=== PATIENT | female | born 1995 | race Caucasian/White ===

== ENCOUNTER 2016-10-08 11:50 | Emergency (ER) | payer OTHER ==
[2016-10-08 12:40] LABS: HCG,QUALITATIVE URINE POSITIVE
[2016-10-08 12:41] LABS: SPECIFIC GRAVITY 1.025 (1.001-1.030); URINE BILIRUBIN NEGATIVE (NEGATIVE); URINE BLOOD 1+ (NEGATIVE); URINE GLUCOSE (UA) NEGATIVE (NEGATIVE); URINE LEUKOCYTE ESTERASE TRACE (NEGATIVE); URINE NITRITE NEGATIVE (NEGATIVE); URINE PROTEIN TRACE (NEGATIVE); URINE UROBILINOGEN NORMAL (0-1 mg/dl)
[2016-10-08 12:43] LABS: URINE APPEARANCE HAZY; URINE COLOR DARK YELLOW
[2016-10-08 13:01] LABS: URINE BACTERIA 1+; URINE EPITHELIAL CELLS 0 /hpf; URINE RBC 0-1 /hpf; URINE WBC NEG /hpf
[2016-10-08 13:16] LABS: ABSOLUTE NEUTROPHIL COUNT 6.7 K/mm3 (1.8-7.7); BASO % 0.2 % (0.2-1.0); EOS # 0.1 (0.0-0.5); EOS % 0.6 % (0.9-2.9); HEMATOCRIT 36.6 % (37.0-47.0); HEMOGLOBIN 11.5 gm/l (12.0-16.0); IMM NEUT% 0.4 % (0-1); LYMPH # 1.4 (1.0-4.8); LYMPH % 16.2 % (15-45); MEAN CELL VOLUME 81.5 fl (81.0-99.0); MEAN CORPUSCULAR HEMOGLOBIN 25.6 pg (27.0-31.0); MEAN CORPUSCULAR HGB CONC 31.4 g/dl (33.0-37.0); MEAN PLATELET VOLUME 9.6 fl (7.4-10.4); MONO # 0.4 (0.0-0.8); MONO % 4.5 % (4-12); NEUT % 78.1 % (43-75); PLATELET COUNT 275 K/mm3 (130-400); RED CELL DISTRIBUTION WIDTH 15.9 % (11.5-14.5)
--- NOTE | 2016-10-08 13:50 | US ---
OB COMP <14 WKS, OB TRANSVAGINAL CLINICAL HISTORY: 21 years old, gestational age 8 weeks 1 day, ANN 05/19/2017, , with one episode of spotting this morning. COMPARISON: None TECHNIQUE: Transabdominal and transvaginal. FINDINGS: Uterus: Single intrauterine gestation. Gestational sac size and shape: Normal size and shape. Mean sac diameter: 3.99 cm = 9 weeks 2 days. [place] rump length: 1.88 cm = 8 weeks 3 days. Estimated date of confinement: 05/21/2017 Embryo: Yes Yolks sac: Yes heart tones: Yes 176 Beats per minute Somatic motion: Too early comment Placenta: Too early to comment. Previa: Too early comment. [place]-gestational bleed: On the left, 2.1 x 1.8 x 0.6 cm Right ovary: 2.8 x 3.0 x 2.4 cm. Normal blood flow. Left ovary: 2.5 x 2.2 x 1.3 cm. Normal blood flow. Impression: Live intrauterine gestation, ultrasound gestational age 8 weeks 3 days. EDC 05/21/2017. Left perigestational bleed, 2.2 x 1.8 x 0.6 cm The report was sent to the emergency department [employer] medical record system 10/08/2016 at 13:53
== END 2016-10-08 14:53 | disposition home or self-care (01) ==
LOC: ED 11:50
DX: O20.0 Threatened abortion (principal); Z3A.08 8 weeks gestation of pregnancy

== ENCOUNTER 2016-12-01 14:22 | Outpatient (CLI) | payer OTHER | END 2016-12-01 14:23 | disposition home or self-care (01) | LOC: NC 14:22 | PROVIDERS: ATTEND Advanced Practice Midwife | DX: O99.211 Obesity complicating pregnancy, first trimester (principal); Z71.3 Dietary counseling and surveillance; Z68.41 Body mass index [BMI] 40.0-44.9, adult ==

== ENCOUNTER 2017-01-20 15:16 | Emergency (ER) | payer OTHER ==
[2017-01-20] MEDS ORDERED: ONDANSETRON 4 MG/2ML 2 ML VIAL ONE (16:01)
[2017-01-20] MEDS ORDERED: SODIUM CHLORIDE 0.9% 1,000 ML ONE (16:01)
[2017-01-20 16:27] LABS: ABSOLUTE NEUTROPHIL COUNT 15.8 K/mm3 (1.8-7.7); BASO % 0.1 % (0.2-1.0); EOS % 0.2 % (0.9-2.9); HEMATOCRIT 34.3 % (37.0-47.0); HEMOGLOBIN 10.7 gm/l (12.0-16.0); IMM NEUT # 0.1 K/mm3 (0-0.2); IMM NEUT% 0.5 % (0-1); LYMPH # 0.4 (1.0-4.8); LYMPH % 2.6 % (15-45); MEAN CELL VOLUME 80.9 fl (81.0-99.0); MEAN CORPUSCULAR HEMOGLOBIN 25.2 pg (27.0-31.0); MEAN CORPUSCULAR HGB CONC 31.2 g/dl (33.0-37.0); MEAN PLATELET VOLUME 9.8 fl (7.4-10.4); MONO # 0.4 (0.0-0.8); MONO % 2.1 % (4-12); NEUT % 94.5 % (43-75); PLATELET COUNT 245 K/mm3 (130-400); RED CELL DISTRIBUTION WIDTH 18.4 % (11.5-14.5)
[2017-01-20 16:37] LABS: ALB/GLOB RATIO 1.1 (>1.0); ALBUMIN 3.7 gm/dL (3.5-5.7); CALCIUM 8.8 mg/dL (8.6-10.3)
[2017-01-20 17:06] LABS: BAND 3 % (0-10); BASOPHIL 0 % (0-1); EOSINOPHIL 0 % (1-3); LYMPHOCYTE 2 % (15-45); MONOCYTE 1 % (4-12); NEUTROPHILS 94 % (43-75); PLATELET ESTIMATE NORMAL (NORMAL); TOTAL CELLS COUNTED 100
== END 2017-01-20 18:14 | disposition home or self-care (01) ==
LOC: ED 15:16
DX: O26.892 Other specified pregnancy related conditions, second trimester (principal); K52.9 Noninfective gastroenteritis and colitis, unspecified; O21.2 Late vomiting of pregnancy; Z3A.23 23 weeks gestation of pregnancy
CPT/HCPCS: 83690; 84703; 85025; 80053; 99283 ×2; 96374; 96361 ×2; J2405; J7030